=== PATIENT | male | born 1940 | race Caucasian/White ===

== ENCOUNTER 2023-03-21 01:25 | Emergency (ER) | payer OTHER ==
[2023-03-21 01:33] VITALS: BP 109/71; PULSE 78; RESP 18; TEMP 98.5; BMI 28.1
[2023-03-21] MEDS ORDERED: guaiFENesin/D-METHORPHAN HB 10 ML UNIT-DOSE CUPS PO ONE (02:10)
[2023-03-21] MEDS ORDERED: guaiFENesin/D-METHORPHAN HB 10 ML UNIT-DOSE CUPS ONE (02:29)
== END 2023-03-21 03:59 | disposition home or self-care (01) ==
LOC: JER 01:25
DX: R09.89 Other specified symptoms and signs involving the circulatory and respiratory systems (principal); R05.1 Acute cough; J06.9 Acute upper respiratory infection, unspecified; B97.89 Other viral agents as the cause of diseases classified elsewhere; Z20.822 Contact with and (suspected) exposure to COVID-19
CPT/HCPCS: 0241U-QW; 71045-TC-FY; 99284-25